=== PATIENT | female | born 1975 | race Two or more races ===

== ENCOUNTER 2019-01-07 07:00 | Day surgery (SDC) | payer OTHER ==
[~2019-01-07] VITALS: Ht 162.6 cm; Wt 102.1 kg
[2019-01-07] MEDS ORDERED: TRAMADOL HCL50 MG PO (13:48)
[2019-01-07] MEDS ORDERED: TYLENOL EXTRA500 MG PO (13:48)
[2019-01-07] MEDS ORDERED: NEURONTIN300 MG PO (13:48)
[2019-01-07] MEDS ORDERED: ZOFRAN4 MG PO (13:48)
[2019-01-07] MEDS ORDERED: MIRALAX17 GM PO (13:48)
== END 2019-01-07 10:52 | disposition home or self-care (01) ==
LOC: CIR.AMB 07:00 → EDSTATUS 07:00 → O/R 07:00 → SURH 07:00 → CIR.AMB 10:52 → SURH 14:45 → O/R 16:50
DX: N80.1 Endometriosis of ovary (principal); K42.0 Umbilical hernia with obstruction, without gangrene; K43.0 Incisional hernia with obstruction, without gangrene

== ENCOUNTER 2022-09-30 08:29 | Inpatient (IN) | payer OTHER ==
[~2022-09-30] VITALS: Ht 132.1 cm; Wt 131.5 kg
[~2022-09-30 08:29] MED LIST: MIRALAX17 GM PO; NEURONTIN300 MG PO; TRAMADOL HCL50 MG PO; TYLENOL EXTRA500 MG PO; ZOFRAN4 MG PO
--- NOTE | 2022-09-30 08:49 | NUR ---
PACIENTE ALERTA Y ORIENTADA X 3. REFIERE DOLOR ABDOMINAL DESDE NOVIEMBRE QUE SE AGUDIZO MARTIN EN LA NOCHE. REFIERE TENER CANCER DE UTERO Y QUE SERIA OPERADA EL POR DR Zay ROBERTSON Y STRINGER INTERNISTA ES DR RAIN.
[2022-09-30] MEDS ORDERED: FOLIC ACID20 MG (08:53)
[2022-09-30] MEDS ORDERED: IRON240 MG (08:53)
[2022-09-30] MEDS ORDERED: LIPITOR40 MG PO (08:53)
[2022-09-30] MEDS ORDERED: BUMETANIDE1 MG PO (08:54)
--- NOTE | 2022-09-30 09:52 | NUR ---
SE ORIENTA PTE SOBRE EL TRATAMIENTO ORDENADO POR EL DR DEWEY PTE ALERTA Y ORIENTADO POR 3 SE RELAIZAN MUESTRAS DE LABORATORIO Y SE ADMINISTRAN MEDICAMENTOS MENG ORDENDO
[2022-10-06] MEDS ORDERED: BUMETANIDE1 MG PO (17:17)
[2022-10-06] MEDS ORDERED: SIMETHICONE125 M1 PO (17:17)
[2022-10-06] MEDS ORDERED: IRON240 MG PO (17:17)
[2022-10-06] MEDS ORDERED: DOCUSATE SODIU100 MG PO (17:17)
[2022-10-06] MEDS ORDERED: COZAAR50 MG PO (17:17)
[2022-10-06] MEDS ORDERED: LIPITOR40 MG PO (17:17)
[2022-10-06] MEDS ORDERED: PAIN RELIEVER500 M2 PO (17:17)
== END 2022-10-06 18:17 | disposition home or self-care (01) | DRG 741 ==
LOC: ER 08:29 → SEC-K 16:05 → SURG 16:05 → MEDJ 16:05 → MEDI 16:05 → MEDJ 20:09 → SURG 10-03 15:43
PROVIDERS: Obstetrics & Gynecology Gynecologic Oncology; Surgery; ADMIT Internal Medicine; ATTEND Internal Medicine
PROC: BW24ZZZ Computerized Tomography (CT Scan) of Chest and Abdomen (ICD-10-PCS; 2022-10-01)
PROC: BW21YZZ Computerized Tomography (CT Scan) of Abdomen and Pelvis using Other Contrast (ICD-10-PCS; 2022-10-01)
PROC: 02HV33Z Insertion of Infusion Device into Superior Vena Cava, Percutaneous Approach (ICD-10-PCS; 2022-10-01)
PROC: 0UT70ZZ Resection of Bilateral Fallopian Tubes, Open Approach (ICD-10-PCS; 2022-10-03)
PROC: 07BC0ZX Excision of Pelvis Lymphatic, Open Approach, Diagnostic (ICD-10-PCS; 2022-10-03)
PROC: 0WQF0ZZ Repair Abdominal Wall, Open Approach (ICD-10-PCS; 2022-10-03)
PROC: 0UT90ZZ Resection of Uterus, Open Approach (ICD-10-PCS; principal; 2022-10-03 23:45)
PROC: 0UT20ZZ Resection of Bilateral Ovaries, Open Approach (ICD-10-PCS; 2022-10-03 23:45)
DX: C54.1 Malignant neoplasm of endometrium (principal); K43.2 Incisional hernia without obstruction or gangrene; K42.9 Umbilical hernia without obstruction or gangrene; R59.0 Localized enlarged lymph nodes; D63.0 Anemia in neoplastic disease; G47.33 Obstructive sleep apnea (adult) (pediatric); Z20.822 Contact with and (suspected) exposure to COVID-19; F32.9 Major depressive disorder, single episode, unspecified